=== PATIENT | male | born 1975 | race Caucasian/White ===

== ENCOUNTER → 2020-09-19 | Outpatient (CLI) | payer MEDICARE, OTHER ==
[~2020-09-19] MED LIST: ABILIFY10 MG PO; BACLOFEN20 MG PO; BASAGLAR K100 UNIT/1 SQ; CARAFATE1 GM PO; CYMBALTA60 MG PO; ELIQUIS5 MG PO; GLUCOPHAGE500 MG PO; HIPREX1 GM PO; LIPITOR TAB 1010 MG PO; MYCOSTATIN POWD15 GM TOP; NEURONTIN 400400 MG PO; OMEPRAZOLE20 MG PO; PROVIGIL200 MG PO; TRICOR145 MG PO; VENTOLIN HFA 66.7 GM INH; VICTOZA 1818 MG/3 ML SQ; VITAMIN D35000 UNI1 PO; ZANTAC150 MG PO
== END ==
LOC: VNA 16:35
DX: Z93.6 Other artificial openings of urinary tract status (principal)
CPT/HCPCS: 87077; 87086; 87186

== ENCOUNTER → 2021-02-25 | Outpatient (CLI) | payer MEDICARE, OTHER ==
[2021-02-25 15:06] LABS: HEMOGLOBIN 10.4 gm/dl (14.0-17.5); RED BLOOD COUNT 5.09 M/UL (4.20-5.50); WHITE BLOOD COUNT 8.4 K/UL (4.5-11.0)
[2021-02-25 15:25] LABS: BUN/CREATININE RATIO 19 (0-10)
== END ==
LOC: LBRF 14:16
PROVIDERS: Nurse Practitioner Family
DX: E11.628 Type 2 diabetes mellitus with other skin complications (principal); L89.324 Pressure ulcer of left buttock, stage 4; G82.21 Paraplegia, complete; I11.0 Hypertensive heart disease with heart failure; I50.20 Unspecified systolic (congestive) heart failure; E66.01 Morbid (severe) obesity due to excess calories
CPT/HCPCS: 80053; 85025; 85652; 86140

== ENCOUNTER → 2022-02-05 | Outpatient (CLI) | payer MEDICARE, OTHER | LOC: LBRF 10:15 | DX: I50.9 Heart failure, unspecified (principal) | CPT/HCPCS: 83880 ==